=== PATIENT | male | born 1975 | race Caucasian/White ===

== ENCOUNTER 2017-09-14 04:14 | Emergency (ER) | payer MEDICAID ==
[~2017-09-14] VITALS: Ht 172.7 cm; Wt 82.0 kg
[2017-09-14] MEDS ORDERED: CIPR2.5D18 OP (05:57)
[2017-09-14] MEDS ORDERED: benoxinate/fluorescein ophth drops 5ml bottle EACHEYE ONE (06:00)
[2017-09-14] MEDS ORDERED: ciprofloxacin 0.3% 5ml ophthalmic solution EACHEYE ONE (06:00)
[2017-09-14] MEDS ORDERED: proparacaine 0.5% ophthalmic drops 15ml EACHEYE ONE (06:05)
[2017-09-14] MEDS ORDERED: PROPARACAINE/FLUORESCEIN ophthalmic drops 5ml bottle EACHEYE ONE (06:20)
[2017-09-14 07:16] VITALS: BP 129/94
== END 2017-09-14 07:17 | disposition home or self-care (01) ==
LOC: ER 04:15
DX: H10.9 Unspecified conjunctivitis (principal); Z79.899 Other long term (current) drug therapy
CPT/HCPCS: 99284; J7030

== ENCOUNTER 2017-11-17 12:36 | Emergency (ER) | payer MEDICAID ==
[~2017-11-17] VITALS: Ht 172.7 cm; Wt 84.1 kg
[~2017-11-17 12:36] MED LIST: CIPR2.5D18 OP
[2017-11-17 13:28] LABS: BASOPHILS % (AUTO) 0.6 % (0-1); EOSINOPHILS # (AUTO) 0.2 X10'3 (0-0.9); EOSINOPHILS % (AUTO) 3.3 % (0-6); HEMATOCRIT 39.4 % (42.0-52.0); HEMOGLOBIN 13.2 g/dl (14.0-17.9); LYMPHOCYTES # (AUTO) 1.5 X10'3 (1.1-4.8); MEAN CORPUSCULAR HEMOGLOBIN 29.7 PG (27.0-31.0); MEAN CORPUSCULAR HGB CONC 33.5 % (33.0-36.5); MEAN CORPUSCULAR VOLUME 88.7 FL (78-98); MEAN PLATELET VOLUME 7.5 FL (7.4-10.4); MONOCYTES # (AUTO) 0.7 X10'3 (0-0.9); MONOCYTES % (AUTO) 10.1 % (2-12); NEUTROPHILS # (AUTO) 4.7 X10'3 (1.8-7.7); PLATELET COUNT 280 X10'3 (140-440); RED BLOOD COUNT 4.44 X10'6 (4.70-6.10); RED CELL DISTRIBUTION WIDTH 14.2 % (11.5-14.5); WHITE BLOOD COUNT 7.2 X10'3 (4.5-11.0)
[2017-11-17 13:29] LABS: CLARITY,URINE CLEAR (Clear); COLOR,URINE YELLOW (Yellow); GLUCOSE, URINE NEGATIVE (Neg); KETONES,URINE NEGATIVE (Neg); LEUKOCYTE ESTERASE ,URINE NEGATIVE (Neg); NITRITES, URINE NEGATIVE (Neg); OCCULT BLOOD,URINE NEGATIVE (Neg); PROTEIN,URINE NEGATIVE (Neg); UROBILINOGEN,URINE 0.2 E.U/dL (0.2-1.0)
[2017-11-17 13:38] VITALS: BP 143/70
[2017-11-17 13:41] LABS: ALANINE AMINOTRANSFERASE 18 U/L (12-78); ALBUMIN 3.4 G/DL (3.4-5.0); ALBUMIN/GLOBULIN RATIO 0.8 (1.1-1.5); ALKALINE PHOSPHATASE 97 IU/L (46-116); ANION GAP 6 (8-16); ASPARTATE AMINO TRANSFERASE 16 U/L (10-37); BILIRUBIN,TOTAL 0.1 MG/DL (0.1-1.0); BLOOD UREA NITROGEN 6 MG/DL (7-18); BUN/CREATININE RATIO 5.5 (5.4-32.0); CALCIUM 8.6 MG/DL (8.5-10.1); CHLORIDE 104 MMOL/L (99-107); CREATININE 1.09 MG/DL (0.60-1.10); GLUCOSE 94 MG/DL (70-104); POTASSIUM 3.6 MMOL/L (3.5-5.1); SODIUM 139 MMOL/L (135-145); TOTAL PROTEIN 7.6 G/DL (6.4-8.2); eGFR 75 ML/MIN
[2017-11-17 13:48] LABS: UA COLLECTION TYPE CLN CATCH MIDSTREAM
[2017-11-17 14:02] LABS: URINE AMPHETAMINE SCREEN POSITIVE (Neg); URINE BARBITUATE SCREEN NEGATIVE (Neg); URINE BENZODIAZEPINES SCREEN NEGATIVE (Neg); URINE CANNABINOID SCREEN NEGATIVE (Neg); URINE COCAINE SCREEN NEGATIVE (Neg); URINE METHADONE SCREEN NEGATIVE (Neg); URINE OPIATE SCREEN NEGATIVE (Neg); URINE PHENCYCLIDINE SCREEN NEGATIVE (Neg)
== END 2017-11-17 13:58 | disposition home or self-care (01) ==
LOC: ER 12:37
DX: R50.9 Fever, unspecified (principal); M54.2 Cervicalgia; R11.0 Nausea; R79.89 Other specified abnormal findings of blood chemistry; R05 Cough; F15.90 Other stimulant use, unspecified, uncomplicated; Z79.2 Long term (current) use of antibiotics
CPT/HCPCS: 36415; 80053; 80305; 81003; 83605; 85025; 87040; 99284

== ENCOUNTER 2018-04-04 13:08 | Emergency (ER) | payer MEDICAID ==
[~2018-04-04] VITALS: Ht 172.7 cm; Wt 81.8 kg
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
[2018-04-04] MEDS ORDERED: LIDOcaine 1.5% w/epinephrine 1:200,000 5ml ampul IJ ONE (13:20)
[2018-04-04] MEDS ORDERED: TETanus/Pertussis (Acell)/Diphther VAC/PF (Tdap-Adult) 0.5ml syringe IM ONE (13:20)
[2018-04-04] MEDS ORDERED: LIDOcaine 1% w/epiNEPHrine 1:200,000 30ml vial IJ ONE (13:25)
--- NOTE | 2018-04-04 13:37 | NUR ---
TANIAD AT TO CLEAN AND REPAIR FACIAL LACS
--- NOTE | 2018-04-04 14:12 | NUR ---
[facility] number [id number]
[2018-04-04 14:41] VITALS: BP 133/60
--- NOTE | 2018-04-04 15:50 | NUR ---
DR. GRANDE CAME TO ME AND THINKS HE WROTE THE RIGHT SCRIP ON THE WRONG PT'S CHART. I CALLED PT'S PHONE NUMBER... IT IS A WRONG NUMBER OR A NON WORKING NUMBER. I CALLED HIS MOM HILDA MARISCAL... SHE IS GOING TO TRY TO GET A MESSAGE TO HIM TO CALL THE ER SO WE CAN VERFY THE NAME ON THE RX....... IF IT IS ON THE WRONG PT'S NAME WE WILL REPORT IT AND GET THE RIGHT NAME ON THE RX............I WILL UPDATE INFORMATION WHEN PT. CALLS BACK.
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
--- NOTE | 2018-04-04 17:55 | NUR ---
MOTHER ALSO GAVE ME A NEW PHONE NUMBER FOR TOYNA'S CONTACT... GEOVANNY SUTTON (GRANDMOTHER) [phone] AND CELL NUMBER [phone]
[2018-04-04] MEDS ORDERED: AMOX-422 PO (17:59)
== END 2018-04-04 14:43 | disposition home or self-care (01) ==
LOC: ER 13:08
DX: S01.21XA Laceration without foreign body of nose, initial encounter (principal); S01.81XA Laceration without foreign body of other part of head, initial encounter; S61.451A Open bite of right hand, initial encounter; F15.90 Other stimulant use, unspecified, uncomplicated; Z79.899 Other long term (current) drug therapy; Y04.1XXA Assault by human bite, initial encounter; Y93.89 Activity, other specified; Y92.89 Other specified places as the place of occurrence of the external cause; Y99.8 Other external cause status
CPT/HCPCS: 12014; 90471; 90715; 99284; J3490

== ENCOUNTER 2019-04-04 19:25 | Emergency (ER) | payer MEDICAID, OTHER ==
[~2019-04-04] VITALS: Ht 172.7 cm; Wt 84.0 kg
[2019-04-04] MEDS ORDERED: triamcinolone acetonide 40mg/ml inj IM ONE (20:40)
[2019-04-04] MEDS ORDERED: ketorolac tromethamine 15mg/ml inj. IM ONE (20:40)
[2019-04-04 21:27] VITALS: BP 135/87
== END 2019-04-04 21:29 | disposition home or self-care (01) ==
LOC: ER 19:26
DX: M77.11 Lateral epicondylitis, right elbow (principal); F15.90 Other stimulant use, unspecified, uncomplicated; Z79.899 Other long term (current) drug therapy
CPT/HCPCS: 96372; 99283; J1885; J3301

== ENCOUNTER 2020-02-28 00:49 | Emergency (ER) | payer MEDICAID ==
[~2020-02-28] VITALS: Ht 172.7 cm; Wt 90.0 kg
[~2020-02-28 00:49] MED LIST changes: +CIPR2.5D14 OP; -CIPR2.5D18 OP
[2020-02-28] MEDS ORDERED: proparacaine 0.5% ophthalmic drops 15ml EACHEYE ONE (01:05)
[2020-02-28] MEDS ORDERED: ERYT1OIN6 RIGHTEYE (01:38)
[2020-02-28 02:46] VITALS: BP 130/59
== END 2020-02-28 02:48 | disposition home or self-care (01) ==
LOC: ER 00:50
DX: T15.11XA Foreign body in conjunctival sac, right eye, initial encounter (principal); F15.90 Other stimulant use, unspecified, uncomplicated; Z79.2 Long term (current) use of antibiotics; X58.XXXA Exposure to other specified factors, initial encounter; Y93.89 Activity, other specified; Y92.89 Other specified places as the place of occurrence of the external cause; Y99.8 Other external cause status
CPT/HCPCS: 65205; 99284

== ENCOUNTER 2020-08-29 09:50 | Emergency (ER) | payer MEDICAID ==
[~2020-08-29] VITALS: Ht 172.7 cm; Wt 88.6 kg
[2020-08-29 10:03] VITALS: BP 107/74
[2020-08-29] MEDS ORDERED: acetaminophen 325mg tablet PO ONE (12:00)
[2020-08-29] MEDS ORDERED: ketorolac trometh. 30mg/ml inj. IM ONE (12:00)
[2020-08-29] MEDS ORDERED: CYCL-1 PO (12:44)
== END 2020-08-29 13:00 | disposition home or self-care (01) ==
LOC: ER 09:51
DX: M54.5 Low back pain (principal); F15.90 Other stimulant use, unspecified, uncomplicated; Z79.2 Long term (current) use of antibiotics; Z79.899 Other long term (current) drug therapy
CPT/HCPCS: 96372; 99283; J1885

== ENCOUNTER 2020-10-24 01:03 | Inpatient (IN) | payer MEDICAID ==
[~2020-10-24] VITALS: Ht 172.7 cm; Wt 86.4 kg
[~2020-10-24 01:03] MED LIST changes: +CYCL-1 PO
[2020-10-24] MEDS ORDERED: normal saline 1000ml 1,000 ML IV ONE ×2 (01:45→04:25)
[2020-10-24 01:57] LABS: BASOPHILS % (AUTO) 0.5 % (0-1); EOSINOPHILS % (AUTO) 0 % (0-6); HEMATOCRIT 41.7 % (42.0-52.0); HEMOGLOBIN 14.3 g/dl (14.0-17.9); LYMPHOCYTES # (AUTO) 0.8 X10'3 (1.1-4.8); LYMPHOCYTES % (AUTO) 10.7 % (21-51); MEAN CORPUSCULAR HEMOGLOBIN 29.2 PG (27.0-31.0); MEAN CORPUSCULAR HGB CONC 34.3 g/dL (33.0-36.5); MEAN CORPUSCULAR VOLUME 85.2 FL (78-98); MEAN PLATELET VOLUME 7.1 FL (7.4-10.4); MONOCYTES # (AUTO) 0.6 X10'3 (0-0.9); MONOCYTES % (AUTO) 7.9 % (2-12); NEUTROPHILS # (AUTO) 6.2 X10'3 (1.8-7.7); NEUTROPHILS % (AUTO) 80.9 % (42-75); PLATELET COUNT 252 X10'3 (140-440); WHITE BLOOD COUNT 7.7 X10'3 (4.5-11.0)
[2020-10-24] MEDS ORDERED: iohexol 300mg/ml 100ml inj. ONE (01:59)
[2020-10-24 02:12] LABS: ALANINE AMINOTRANSFERASE 41 U/L (12-78); ALBUMIN 3.5 G/DL (3.4-5.0); ALBUMIN/GLOBULIN RATIO 0.7 (1.1-1.5); ALKALINE PHOSPHATASE 120 IU/L (46-116); ANION GAP 9 (8-16); ASPARTATE AMINO TRANSFERASE 46 U/L (10-37); BILIRUBIN,TOTAL 0.5 MG/DL (0.1-1.0); BLOOD UREA NITROGEN 8 MG/DL (7-18); BUN/CREATININE RATIO 7.1 (5.4-32.0); CALCIUM 8.4 MG/DL (8.5-10.1); CHLORIDE 96 MMOL/L (99-107); CREATININE 1.12 MG/DL (0.60-1.10); GLUCOSE 124 MG/DL (70-104); POTASSIUM 3.6 MMOL/L (3.5-5.1); SODIUM 132 MMOL/L (135-145); TOTAL CARBON DIOXIDE 27.1 MMOL/L (24-32); TOTAL PROTEIN 8.3 G/DL (6.4-8.2); eGFR 72 ML/MIN
[2020-10-24 02:16] LABS: LIPASE 79 U/L (73-393); TROPONIN I < 0.04 NG/ML (0.0-0.05)
[2020-10-24 03:41] LABS: CLARITY,URINE CLEAR (Clear); COLOR,URINE YELLOW (Yellow); GLUCOSE, URINE NEGATIVE (Neg); KETONES,URINE TRACE mg/dl (Neg); LEUKOCYTE ESTERASE ,URINE NEGATIVE (Neg); NITRITES, URINE NEGATIVE (Neg); OCCULT BLOOD,URINE NEGATIVE (Neg); PH,URINE 5.5 (4.8-8.0); PROTEIN,URINE NEGATIVE (Neg)
[2020-10-24 03:42] LABS: UA COLLECTION TYPE CLN CATCH MIDSTREAM
[2020-10-24] MEDS ORDERED: ciprofloxacin lact 400MG/200ML 200 ML IV ONE (04:25)
[2020-10-24] MEDS ORDERED: metroNIDAZOLE-Flagyl 500mg/NS 100 ML IV ONE (04:25)
[2020-10-24] MEDS ORDERED: NO HOME MEDS (04:35)
[2020-10-24] MEDS ORDERED: bisacodyl 10mg suppository rectal RC PRN (04:40)
[2020-10-24] MEDS ORDERED: mag hydrox/Alum hydrox/simeth 30ml oral suspension PO PRN (04:40)
[2020-10-24] MEDS ORDERED: ondansetron/PF 4mg/2ml inj IV PRN (04:40)
[2020-10-24] MEDS ORDERED: HYDROmorphone inj. 0.5 MG/0.5 ML DISP.SYRIN IV PRN (04:40)
[2020-10-24] MEDS ORDERED: acetaminophen 325mg tablet PO PRN ×2 (04:40)
[2020-10-24] MEDS ORDERED: acetaminophen 650mg rectal suppository RC PRN (04:40)
[2020-10-24] MEDS ORDERED: HYDROcodone/acetaminophen 10/325mg tab PO PRN (04:40)
[2020-10-24] MEDS ORDERED: diphenhydrAMINE 25mg capsule PO PRN (04:40)
[2020-10-24] MEDS ORDERED: diphenhydrAMINE 50 mg/ml inj IV PRN (04:40)
[2020-10-24] MEDS ORDERED: magnesium hydroxide 30ml (MOM) UD suspension PO PRN (04:40)
[2020-10-24] MEDS ORDERED: morphine 2 MG/ML inj. syringe IV PRN ×2 (04:40)
[2020-10-24] MEDS ORDERED: HYDROcodone/acetaminophen 5mg/325mg tablet PO PRN (04:40)
[2020-10-24] MEDS ORDERED: ondansetron 4mg rapidly disintigrating tab PO PRN (04:40)
[2020-10-24] MEDS ORDERED: ALBUTEROL INHALER 1 PUFF/90 MCG INHALER IH PRN (04:45)
[2020-10-24 05:01] LABS: PARTIAL THROMBOPLASTIN TIME 34 SECONDS (22-32)
[2020-10-24 05:03] LABS: HEMOGLOBIN A1C 5.8 % (4.5-6.2)
[2020-10-24 05:11] LABS: MAGNESIUM 2.2 MG/DL (1.5-2.4)
[2020-10-24] MEDS: dexamethasone inj 6 MG in normal saline 50ml IV soln 50 ML IV SCH ×2 (05:34→21:33)
[2020-10-24] MEDS: normal saline 1000ml 1,000 ML IV SCH ×2 (05:41→15:32)
[2020-10-24] MEDS: docusate sod 100mg capsule PO SCH ×2 (08:00→21:38)
[2020-10-24] MEDS ORDERED: ciprofloxacin lact 400MG/200ML 200 ML IV SCH (08:00)
[2020-10-24] MEDS ORDERED: metroNIDAZOLE-Flagyl 500mg/NS 100 ML IV SCH (08:00)
[2020-10-24] MEDS ORDERED: enoxaparin 40mg/0.4ml syringe SUBCUT SCH (08:00)
--- NOTE | 2020-10-24 09:11 | NUR ---
called pharmacy for ivet.
[2020-10-24] MEDS: piperacillin/tazo 4.5gm/100ml 100 ML IV SCH ×2 (09:31→16:30)
[2020-10-24] MEDS: pantoprazole 40mg Tablet.DR PO SCH (09:32)
[2020-10-24] MEDS: enoxaparin 40mg/0.4ml syringe SUBCUT SCH ×2 (09:32→21:38)
--- NOTE | 2020-10-24 15:10 | NUR ---
dr ramirez at bedside evaluating the pt.
--- NOTE | 2020-10-24 16:15 | NUR ---
CALLED PHARMACY FOR THE ZOYSIN .
[2020-10-24] MEDS ORDERED: temazepam 15mg capsule PO PRN (21:00)
[2020-10-24] MEDS: lactobacillus rhamnosus 10,000 MMU CELLS/CAPSULE PO SCH (21:38)
[2020-10-25] MEDS: piperacillin/tazo 4.5gm/100ml 100 ML IV SCH ×4 (01:28→23:54)
[2020-10-25] MEDS: normal saline 1000ml 1,000 ML IV SCH ×3 (01:29→20:57)
[2020-10-25 05:22] LABS: BASOPHILS % (AUTO) 0.2 % (0-1); EOSINOPHILS % (AUTO) 0 % (0-6); HEMATOCRIT 40.2 % (42.0-52.0); HEMOGLOBIN 13.5 g/dl (14.0-17.9); LYMPHOCYTES % (AUTO) 14.6 % (21-51); MEAN CORPUSCULAR HEMOGLOBIN 29.3 PG (27.0-31.0); MEAN CORPUSCULAR HGB CONC 33.7 g/dL (33.0-36.5); MEAN PLATELET VOLUME 7.7 FL (7.4-10.4); MONOCYTES # (AUTO) 0.5 X10'3 (0-0.9); MONOCYTES % (AUTO) 7.7 % (2-12); NEUTROPHILS # (AUTO) 5.2 X10'3 (1.8-7.7); NEUTROPHILS % (AUTO) 77.5 % (42-75); PLATELET COUNT 277 X10'3 (140-440); RED BLOOD COUNT 4.62 X10'6 (4.70-6.10); RED CELL DISTRIBUTION WIDTH 13.9 % (11.5-14.5); WHITE BLOOD COUNT 6.7 X10'3 (4.5-11.0)
[2020-10-25 05:44] LABS: ALANINE AMINOTRANSFERASE 46 U/L (12-78); ALBUMIN 2.8 G/DL (3.4-5.0); ALBUMIN/GLOBULIN RATIO 0.6 (1.1-1.5); ALKALINE PHOSPHATASE 95 IU/L (46-116); ANION GAP 9 (8-16); ASPARTATE AMINO TRANSFERASE 38 U/L (10-37); BILIRUBIN,TOTAL 0.3 MG/DL (0.1-1.0); BLOOD UREA NITROGEN 11 MG/DL (7-18); BUN/CREATININE RATIO 12.1 (5.4-32.0); CALCIUM 8.2 MG/DL (8.5-10.1); CHLORIDE 104 MMOL/L (99-107); CHOL/HDL RATIO 4.9 (0.00-4.99); CHOLESTEROL 152 MG/DL (0-200); CREATININE 0.91 MG/DL (0.60-1.10); GLUCOSE 127 MG/DL (70-104); HDL CHOLESTEROL 31 MG/DL (35-60); LDL CHOLESTEROL 106 MG/DL (50-100); POTASSIUM 4.2 MMOL/L (3.5-5.1); SODIUM 138 MMOL/L (135-145); TOTAL CARBON DIOXIDE 25.4 MMOL/L (24-32); TOTAL PROTEIN 7.6 G/DL (6.4-8.2); TRIGLYCERIDES 95 MG/DL (20-135); eGFR > 90 ML/MIN
--- NOTE | 2020-10-25 06:24 | NUR ---
REPORT GIVEN TO RAVINDRA
--- NOTE | 2020-10-25 06:39 | NUR ---
CALLED COVID UNIT TO GIVE REPORT, CHARGE NURSE, HANK RN TELLS THIS RN THAT THERE IS NO NURSE TO TAKE PATIENT YET, AND THAT SHE WILL CALL BACK WHEN THEY GET STAFF.
--- NOTE | 2020-10-25 07:49 | NUR ---
RN CALLED TO GIVE REPORT, RN WAS TOLD THAT PER CHARGE NURSE, THE UNIT IS NOT ACCEPTING ANY NEW PATIENTS UNIT THEY GET ANOTHER RN TO TAKE THE PATIENT. THIS RN ALEX NOTIFY ED MANAGER OF CORPORATE COMMUNICATIONS.
[2020-10-25] MEDS: enoxaparin 40mg/0.4ml syringe SUBCUT SCH ×2 (08:16→20:57)
[2020-10-25] MEDS: pantoprazole 40mg Tablet.DR PO SCH (08:16)
[2020-10-25] MEDS: docusate sod 100mg capsule PO SCH ×2 (08:17→20:56)
[2020-10-25] MEDS: lactobacillus rhamnosus 10,000 MMU CELLS/CAPSULE PO SCH ×2 (08:17→20:56)
--- NOTE | 2020-10-25 08:21 | NUR ---
RN CALLED TO GEE REPORT AND SPOKE TO CHARGE NURSE. THIS RN WAS TOLD THAT THE RECEIVING RN JUST ARRIVED TO THE UNIT AND HAS ACCEPTED OTHER PATIENTS AND WILL NEED SOME TIME BEFROE THEY PALOMO BE READY TO TAKE REPORT. ED CERAMIC DESIGN ENGINEER NOTIFIED
[2020-10-25] MEDS: dexamethasone inj 6 MG in normal saline 50ml IV soln 50 ML IV SCH ×2 (08:57→20:57)
[2020-10-25 12:12] VITALS: BP 121/57
[2020-10-25 15:29] VITALS: BP 122/74
[2020-10-25 18:30] VITALS: BP 161/77
--- NOTE | 2020-10-25 18:40 | NUR ---
Patient in room COVID 03. I have received report from David SIERRA and had the opportunity to ask questions and assume patient care.
[2020-10-25 22:00] VITALS: BP 142/86
[2020-10-26 07:07] LABS: BASOPHILS % (AUTO) 0.2 % (0-1); EOSINOPHILS % (AUTO) 0.1 % (0-6); HEMATOCRIT 39.2 % (42.0-52.0); LYMPHOCYTES # (AUTO) 1.4 X10'3 (1.1-4.8); LYMPHOCYTES % (AUTO) 16.6 % (21-51); MEAN CORPUSCULAR HEMOGLOBIN 28.8 PG (27.0-31.0); MEAN CORPUSCULAR HGB CONC 33.1 g/dL (33.0-36.5); MEAN PLATELET VOLUME 7.8 FL (7.4-10.4); MONOCYTES # (AUTO) 0.7 X10'3 (0-0.9); MONOCYTES % (AUTO) 8.6 % (2-12); NEUTROPHILS # (AUTO) 6.3 X10'3 (1.8-7.7); NEUTROPHILS % (AUTO) 74.5 % (42-75); PLATELET COUNT 332 X10'3 (140-440); RED BLOOD COUNT 4.51 X10'6 (4.70-6.10); WHITE BLOOD COUNT 8.4 X10'3 (4.5-11.0)
[2020-10-26 08:01] LABS: ALANINE AMINOTRANSFERASE 39 U/L (12-78); ALBUMIN 2.8 G/DL (3.4-5.0); ALBUMIN/GLOBULIN RATIO 0.6 (1.1-1.5); ALKALINE PHOSPHATASE 101 IU/L (46-116); ANION GAP 11 (8-16); ASPARTATE AMINO TRANSFERASE 18 U/L (10-37); BILIRUBIN,TOTAL 0.2 MG/DL (0.1-1.0); BLOOD UREA NITROGEN 9 MG/DL (7-18); BUN/CREATININE RATIO 10.2 (5.4-32.0); CALCIUM 8.2 MG/DL (8.5-10.1); CHLORIDE 106 MMOL/L (99-107); CREATININE 0.88 MG/DL (0.60-1.10); GLUCOSE 116 MG/DL (70-104); POTASSIUM 4.1 MMOL/L (3.5-5.1); SODIUM 142 MMOL/L (135-145); TOTAL PROTEIN 7.3 G/DL (6.4-8.2); eGFR > 90 ML/MIN
--- NOTE | 2020-10-26 08:19 | NUR ---
PAGER ID: [phone] MESSAGE: Jennifer [phone] Gage Todd- He is leaving AMA. He is ambulating around on RA no distress.
--- NOTE | 2020-10-26 08:54 | NUR ---
Pt. left AMA
--- NOTE | 2020-10-26 09:04 | NUR ---
PAGER ID: [phone] MESSAGE: Jennifer [phone] [address] left. AMA form signed
[2020-10-26] MEDS ORDERED: LEVO500T89 PO (09:07)
[2020-10-26] MEDS ORDERED: METR-159 PO (09:07)
== END 2020-10-26 08:30 | disposition left against medical advice (07) | DRG 137 ==
LOC: ER 01:06 → UNDOADMIN 04:37 → ED HOLD 04:37 → COVID IP 10-25 09:50
PROVIDERS: ADMIT Family Medicine; ATTEND Family Medicine
PROC: BW211ZZ Computerized Tomography (CT Scan) of Abdomen and Pelvis using Low Osmolar Contrast (ICD-10-PCS; principal; 2020-10-24)
DX: U07.1 COVID-19 (principal); J12.82 Pneumonia due to coronavirus disease 2019; N17.9 Acute kidney failure, unspecified; E87.1 Hypo-osmolality and hyponatremia; K57.20 Diverticulitis of large intestine with perforation and abscess without bleeding; E86.1 Hypovolemia; R82.4 Acetonuria; F15.90 Other stimulant use, unspecified, uncomplicated; R09.02 Hypoxemia; Z53.29 Procedure and treatment not carried out because of patient's decision for other reasons
CPT/HCPCS: 36415; 71045; 74177; 80053; 80061; 81003; 83036; 83605; 83690; 83735; 83880; 83930; 84100; 84484; 85025; 85610; 85730; 87635; 93005; 94760; 96361; 96365; 99285; C9803; G0378; J0744; J1100; J1650; J2543; J3490; J7030; Q9967

== ENCOUNTER 2021-06-18 03:50 | Emergency (ER) | payer MEDICAID ==
[~2021-06-18] VITALS: Ht 172.7 cm; Wt 88.6 kg
[2021-06-18 04:10] VITALS: BP 145/96
[2021-06-18] MEDS ORDERED: diazepam 5mg tablet PO ONE (04:10)
[2021-06-18] MEDS ORDERED: ketorolac trometh inj. 60 MG/2 ML VIAL IM ONE (04:10)
[2021-06-18] MEDS ORDERED: CYCL-1 PO (04:57)
== END 2021-06-18 05:05 | disposition home or self-care (01) ==
LOC: ER 03:50
DX: G89.29 Other chronic pain (principal); M54.50 Low back pain, unspecified; F15.90 Other stimulant use, unspecified, uncomplicated
CPT/HCPCS: 96372; 99283; J1885